=== PATIENT | female | born 1990 | race Caucasian/White ===

== ENCOUNTER 2018-05-08 06:59 | Day surgery (SDC) | payer OTHER ==
[~2018-05-08] VITALS: Ht 175.3 cm; Wt 79.7 kg
[2018-05-08 07:16] VITALS: BP 106/63; PULSE 56; TEMP 98.1
[2018-05-08] MEDS ORDERED: PRENATAL FORMU1 EAC3 PO (07:18)
[2018-05-08] MEDS ORDERED: IBU600 MG PO (09:43)
[2018-05-08 09:45] VITALS: BP 112/71; PULSE 61; TEMP 98.3
--- NOTE | 2018-05-08 09:45 | NUR ---
The patient arrived back to [facility] from the operating room at this time. The patient appears alert and oriented at this time. The patient reports "soreness and burning" at this time. The patient has mesh undies and a ana pad in place at this time. The patient's post operative vital signs were started at this time. The patient's was brought back to be at her bedside. The patient reported feeling the urge to void and was assisted to the bathroom with the stand by assistance of two and appeared to tolerate the activity well. The patient voided without difficulty and her assisted her back to the cart in her room. The patient was given a 2 extra pairs of mesh undies and extra ana pads at this time. Will continue to monitor the patient.
[2018-05-08 10:00] VITALS: BP 110/56; PULSE 53
--- NOTE | 2018-05-08 10:05 | NUR ---
The patient appears to be resting comfortably on the cart at this time. Respirations even and unlabored. The patient was given some ice water and appears to be tolerating it well. The patient was given another warm blanket per her request at this time. Will continue to monitor the patient.
[2018-05-08 10:20] VITALS: BP 107/66; PULSE 55
--- NOTE | 2018-05-08 10:20 | NUR ---
The patient appears to be resting comfortably on the cart at this time. The patient's remains at her bedside at this time. The patient denies wanting anything to eat at this time. Will continue to monitor the patient.
[2018-05-08 10:35] VITALS: BP 103/66; PULSE 55
--- NOTE | 2018-05-08 10:35 | NUR ---
The patient appears more alert at this time. The nurse instructed the patient to drink more water and as long as the water settles with no complaints of nausea she can be discharged home. The nurse answered the patient's questions regarding cramping and use of medication and a heating pad at home. remains at her bedside. Will continue to monitor the patient.
[2018-05-08 11:05] VITALS: BP 100/59; PULSE 54
--- NOTE | 2018-05-08 11:05 | NUR ---
Discharge instructions were reviewed with the patient and her at this time. They both verbalized understanding and have no questions for the nurse at this time. The patient's IV to her left hand was removed and a pressure dressing was applied to site. The nurse instructed the patient to get dressed and notify the staff when she is ready to be escorted out.
--- NOTE | 2018-05-08 11:15 | NUR ---
The patient was escorted out via wheelchair to a private vehicle by CHAPINCITO Bird. The patient's belongings and discharge paperwork were sent with her. The patient's is present to drive her home.
== END 2018-05-08 11:15 | disposition home or self-care (01) ==
LOC: SDCO 06:59
DX: O02.1 Missed abortion (principal); O34.00 Maternal care for unspecified congenital malformation of uterus, unspecified trimester; O34.01 Maternal care for unspecified congenital malformation of uterus, first trimester
CPT/HCPCS: J1885; J2405; J2704; J3010; J7120

== ENCOUNTER → 2018-06-14 | Outpatient (CLI) | payer OTHER ==
[~2018-06-14] MED LIST: IBU600 MG PO; PRENATAL FORMU1 EAC3 PO
== END ==
LOC: COL.RAD 12:10
DX: R53.1 Weakness (principal); R20.0 Anesthesia of skin
CPT/HCPCS: A9585

== ENCOUNTER 2020-06-03 22:25 | Inpatient (IN) | payer OTHER ==
[~2020-06-03] VITALS: Ht 175.3 cm; Wt 94.5 kg
--- NOTE | 2020-06-03 22:35 | NUR ---
Ambulatory to unit for labor assessment, accompanied by spouse. Oriented to romm, monitor, plan of care. Pt states "I think my water broke"
[2020-06-03 22:45] VITALS: BP 129/74; PULSE 84; TEMP 97.9
[2020-06-04] VITALS (42 sets, daily range): BP systolic 99–145; BP diastolic 52–86; PULSE 64–151; TEMP 97.5–98.9
[2020-06-04 01:40] LABS: BASO # 0.1 (0.0-0.2); BASO % 0.3 % (0.0-2.0); EOS # 0.1 (0.0-0.7); EOS % 0.3 % (0-4.0); GRAN # 16.4 (1.4-6.5); GRAN % 83.6 % (42.2-75.2); HEMATOCRIT 39.1 % (37.0-47.0); HEMOGLOBIN 13.3 g/dl (12.5-16.0); LYMPH # 1.7 (1.2-3.4); LYMPH % 8.6 % (20.0-51.0); MEAN CELL VOLUME 86 fl (80.0-100.0); MEAN CORPUSCULAR HEMOGLOBIN 29 pg (27.0-31.0); MEAN CORPUSCULAR HGB CONC 34 g/dl (33.0-37.0); MEAN PLATELET VOLUME 10.2 fl (7.4-10.4); MONO # 1.3 (0.1-0.6); MONO % 6.6 % (1.7-9.3); PLATELET COUNT 257 K/mm3 (130-400); RED BLOOD COUNT 4.56 M/mm3 (4.10-5.30); REDCELL DISTRIBUTION WIDTH-CV 12.9 % (11.5-14.5)
--- NOTE | 2020-06-04 06:20 | NUR ---
Bedside report received from Savanna BECKHAM. Patient resting and has no needs. Plan of care updated. 0645: SVE /0 patient repositioned in boogie position. Dr. Eaton called and updated. 0715: SVE-0 0718: Patient given pushing instructions and questions answered. Patient begins to push with contractions. 0725: Dr. Eaton at bedside to assess patient and progress. Orders to continue to push with patient and to start pitocin if contractions continue to stay spaced out. 0753: Patient continues to push with contractions. Pitocin discussed with patient and agrees with plan, started at 2mU per protocol. 0855: Mclaughlin catheter removed and patient continues to push with contractions. Dr. Eaton at bedside. 0910: Dr. Eaton at bedside and patient set up for vaginal delivery. Patient continues to push with physician. 0928: Spontaneous vaginal delivery of head followed by body. Infant bulb syringed and to patients abdomen, Eligio BECKHAM assumes care of . Cord clamped by physician and cut by FOB. Cord blood obtained. 0933: Spontaneous delivery of placenta and pitocin bolus started at 333mU per protocol. Fundal massage done/firm/bleeding WNL Physician begins to repair laceration. 0945: Fundal massage done, repositioned, plan of care discussed.
--- NOTE | 2020-06-04 12:30 | NUR ---
Ambulates to the bathroom. Voids large amount of clear yellow urine. Ice pack on, assist to wheel chair, to nursery to watch bath.
--- NOTE | 2020-06-04 15:30 | NUR ---
Rests in bed, alert. Ibuprofen 600 mg given per request and as ordered.
[2020-06-05 03:30] VITALS: BP 106/65; PULSE 91; TEMP 98
[2020-06-05 08:30] VITALS: BP 98/77; PULSE 83; TEMP 98.1
[2020-06-05] MEDS ORDERED: IBU600 MG PO (10:15)
== END 2020-06-05 13:30 | disposition home or self-care (01) | DRG 807 ==
LOC: LDRO 22:25 → LDR 23:05 → LDRO 06-04 → LDR 06-04 00:03 → OB 06-04 12:40
PROVIDERS: ADMIT Obstetrics & Gynecology
PROC: 10E0XZZ Delivery of Products of Conception, External Approach (ICD-10-PCS; principal; 2020-06-04)
PROC: 0KQM0ZZ Repair Perineum Muscle, Open Approach (ICD-10-PCS; 2020-06-04)
DX: O77.0 Labor and delivery complicated by meconium in amniotic fluid (principal); Z37.0 Single live birth; O70.1 Second degree perineal laceration during delivery; Z3A.39 39 weeks gestation of pregnancy
CPT/HCPCS: OP; J2590; J2791; J2795; J7120

== ENCOUNTER → 2020-06-14 | Outpatient (CLI) | payer OTHER ==
--- NOTE | 2020-06-14 14:08 | NUR ---
Pt, Jessi Cotter, presents for outpatient consult with nine day old baby girl, Shawna Bowen, to evaluate latch and possible tongue tie. Shawna was born on 06/04/2022 and weighed 8#2.9oz. Shawna was seen by Dr. Russell on 06/07/20 when weighed 7#8oz and on 06/09/20 when she weighed 7#10oz. Voids, stools and feedings are all WNL. Today Suri weighs 8#0.2oz (3636 gms) for a gain of 5oz over 6 days. Pt states is going better; she has struggled with engorgement. Oversupply is noted at this feeding as Shawna has difficulty remaining latched until breast softens a little. Intake from the left breast only was 4.2oz. Evaluation of subligual frenulum with gloved finger notes a very thin tissue but it does not seem to interfer with Shawna's ability to breast and pt denies pain. Pt asks if weight check scheduled for tomorrow with Dr. Bess for Dr. Russell can be cancelled. leaves a voicemail for Dr. Bess reflecting weight and intake observed today and for the office to contact pt if they desire Shawna be seen in the clinic as scheduled. POC: Breastfeed ad brayan F/U: One month as scheduled with Dr. Russell. Questions invited and answered.
== END ==
LOC: LAC
DX: Z39.1 Encounter for care and examination of lactating mother (principal); Z71.89 Other specified counseling